=== PATIENT | female | born 1995 | race Caucasian/White ===

== ENCOUNTER 2017-06-16 17:37 | Inpatient (IN) | payer OTHER ==
[2017-06-16] MEDS ORDERED: LIDOCAINE 1% (MPF) 30 ML INJ INJ (23:00)
[2017-06-16] MEDS ORDERED: OXYTOCIN 30 UNITS/LR 500 ML IV (23:00)
[2017-06-16] MEDS ORDERED: METHYLERGONOVINE 0.2 MG INJ IM (23:00)
[2017-06-16] MEDS ORDERED: MISOPROSTOL 200 MCG TAB PR (23:00)
[2017-06-16] MEDS ORDERED: CARBOPROST 250 MCG INJ IM (23:00)
[2017-06-16] MEDS ORDERED: BUTORPHANOL 2 MG INJ IV (23:00)
[2017-06-16] MEDS: LACTATED RINGER'S 1,000 ML IV (23:40)
[2017-06-17 00:08] LABS: ADD MAN DIFF? NO
[2017-06-17 00:11] LABS: WHITE BLOOD COUNT 9.5 10^3/ul (4.8-10.8)
[2017-06-17 00:12] LABS: BASOPHILS % 0.4 % (0.0-2.0); EOSINOPHILS # 0.1 10^3/ul (0.0-0.5); EOSINOPHILS % 0.7 % (0.0-7.0); LYMPHOCYTES % 21.2 % (15.0-51.0); MEAN CORPUSCULAR HEMOGLOBIN 29.1 pg (29.0-33.0); MEAN CORPUSCULAR HGB CONC 33.3 g/dl (32.0-37.0); MEAN CORPUSCULAR VOLUME 87.3 fl (82.0-101.0); MEAN PLATELET VOLUME 11.3 fl (7.4-10.4); MONOCYTE # 0.6 10^3/ul (0.3-0.9); MONOCYTES % 6.1 % (0.0-11.0); NEUTROPHIL # 6.7 10^3/ul (1.6-7.5); PLATELET COUNT 380 10^3/UL (140-415); RED BLOOD COUNT 3.78 10^6/ul (4.20-5.40); RED CELL DISTRIBUTION WIDTH 13.4 % (11.5-14.5)
[2017-06-17 01:10] LABS: INR 0.86; PROTIME 11.8 Sec (11.9-14.9); PT RATIO 0.9
[2017-06-17] MEDS: OXYTOCIN 30 UNITS/LR 500 ML IV ×3 (01:54→18:29)
[2017-06-17] MEDS ORDERED: LACTATED RINGER'S 1,000 ML IV (02:39)
[2017-06-17] MEDS ORDERED: LACTATED RINGER'S 500 ML IV (03:00)
[2017-06-17 04:33] LABS: HIV 1&2 ANTIBODY NEGATIVE (NEGATIVE)
[2017-06-17] MEDS: LACTATED RINGER'S 500 ML IV ×5 (05:59→23:55)
[2017-06-17] MEDS ORDERED: FENTAnyl 2MCG/ML-ROPIV 0.2% 100 ML (06:37)
[2017-06-17] MEDS ORDERED: NALOXONE (0.4 MG/ML) INJ IV (07:30)
[2017-06-17] MEDS: FENTAnyl 2MCG/ML-ROPIV 0.2% 100 ML BAG EPI (14:45)
[2017-06-17 16:02] LABS: HEPATITIS B SURFACE ANTIGEN NEGATIVE (NEGATIVE)
[2017-06-17] MEDS: LACTATED RINGER'S 1,000 ML IV ×2 (19:26)
[2017-06-17] MEDS: IBUPROFEN 600 MG TAB PO (19:44)
[2017-06-17] MEDS ORDERED: MISOPROSTOL 200 MCG TAB PR (22:00)
[2017-06-17] MEDS ORDERED: SENNA/DOCUSATE NA (8.6MG/50MG) TAB PO (22:00)
[2017-06-17] MEDS ORDERED: METHYLERGONOVINE 0.2 MG INJ IM (22:00)
[2017-06-17] MEDS ORDERED: CARBOPROST 250 MCG INJ IM (22:00)
[2017-06-17] MEDS ORDERED: OXYTOCIN 30 UNITS/LR 500 ML IV (22:00)
[2017-06-17] MEDS ORDERED: ZOLPIDEM 5 MG TAB PO (22:00)
[2017-06-17 22:36] LABS: RAPID PLASMA REAGIN NONREACTIVE (NR)
[2017-06-17] MEDS: OXYCODONE/ASPIRIN (4.88/325) TAB PO (23:20)
[2017-06-17] MEDS: BENZOCAINE 20% 56 ML SPRAY TOP (23:21)
[2017-06-17] MEDS: WITCH HAZEL/GLYCERIN PAD PR (23:21)
[2017-06-17] MEDS: LANOLIN 7 GM TUBE TOP (23:22)
[2017-06-18] MEDS: LACTATED RINGER'S 500 ML IV ×2 (03:30→07:30)
[2017-06-18] MEDS: IBUPROFEN 600 MG TAB PO ×5 (06:41→23:36)
[2017-06-18] MEDS: OXYCODONE/ASPIRIN (4.88/325) TAB PO (07:36)
[2017-06-18 08:45] LABS: ADD MAN DIFF? NO
[2017-06-18 08:55] LABS: BASOPHIL # 0.1 10^3/ul (0.0-0.1); BASOPHILS % 0.5 % (0.0-2.0); EOSINOPHILS # 0.1 10^3/ul (0.0-0.5); EOSINOPHILS % 0.5 % (0.0-7.0); HEMOGLOBIN 9.2 g/dl (12.0-16.0); LYMPHOCYTES % 15.9 % (15.0-51.0); MEAN CORPUSCULAR HEMOGLOBIN 28.7 pg (29.0-33.0); MEAN CORPUSCULAR HGB CONC 32.9 g/dl (32.0-37.0); MEAN CORPUSCULAR VOLUME 87.2 fl (82.0-101.0); MEAN PLATELET VOLUME 11.2 fl (7.4-10.4); MONOCYTE # 0.9 10^3/ul (0.3-0.9); MONOCYTES % 6.7 % (0.0-11.0); NEUTROPHIL # 9.6 10^3/ul (1.6-7.5); NEUTROPHILS % 75.8 % (39.0-77.0); PLATELET COUNT 284 10^3/UL (140-415); RED BLOOD COUNT 3.21 10^6/ul (4.20-5.40); RED CELL DISTRIBUTION WIDTH 13.6 % (11.5-14.5)
[2017-06-18 08:55] LABS: WHITE BLOOD COUNT 12.6 10^3/ul (4.8-10.8)
[2017-06-18] MEDS: SENNA/DOCUSATE NA (8.6MG/50MG) TAB PO ×2 (09:00→22:13)
[2017-06-18 11:51] LABS: RUBELLA ANTIBODY - IGG <0.90 index; RUBELLA ANTIBODY - IGM <20.00 AU/mL
[2017-06-18] MEDS: LANOLIN 7 GM TUBE TOP (22:13)
[2017-06-19] MEDS: IBUPROFEN 600 MG TAB PO ×2 (06:08→12:03)
[2017-06-19] MEDS: SENNA/DOCUSATE NA (8.6MG/50MG) TAB PO (10:15)
[2017-06-19] MEDS: DIPHTH/TET/ACEL PERTUSS (ADULT) 0.5 ML VIAL IM* (10:16)
[2017-06-20] MEDS ORDERED: INFLUENZA VIRUS VACCINE 0.5 ML (DISPENSING) IM* (09:00)
== END 2017-06-19 15:15 | disposition home or self-care (01) | DRG 775 ==
LOC: L-D 06-17 05:35 → PP1 06-17 20:30 → L-D 22:48
PROVIDERS: Obstetrics & Gynecology
PROC: 10E0XZZ Delivery of Products of Conception, External Approach (ICD-10-PCS; principal; 2017-06-17)
PROC: 3E033VJ Introduction of Other Hormone into Peripheral Vein, Percutaneous Approach (ICD-10-PCS; 2017-06-17)
DX: O69.81X0 Labor and delivery complicated by cord around neck, without compression, not applicable or unspecified (principal); Z37.0 Single live birth; Z3A.39 39 weeks gestation of pregnancy
CPT/HCPCS: 62319; 76815; 85025; 85610; 85730; 86592; 86703; 86762; 86900; 86901; 87340; 90715